=== PATIENT | male | born 1955 | race Caucasian/White ===

== ENCOUNTER 2016-12-16 08:27 | Emergency (ER) | payer BC, MEDICARE ==
[2016-12-16] MEDS ORDERED: Enoxaparin Sodium 100 MG/ML SYRINGE ONE (09:21)
[2016-12-16 09:25] LABS: #Basophils 0.1 thou/uL (0.0-0.2); #Eosinphils 0.1 thou/uL (0.0-0.7); #Lymphocytes 1.5 thou/uL (1.20-3.40); #Monocytes 0.7 thou/uL (0.11-0.59); #Neutrophils 6.4 thou/uL (1.40-6.50); %Basophils 0.7 % (0.0-1.0); %Eosinophils 1.2 % (0.0-10.0); %Lymphocytes 17.5 % (21.0-51.0); %Monocytes 8.4 % (0.0-10.0); %Neutrophils 72.3 % (42.0-75.0); Hemoglobin 16.7 g/dL (14.0-18.0); Mean Corpuscular HGB CONC 32.8 g/dL (32.0-36.0); Mean Corpuscular Hemoglobin 30.3 pg (27.0-31.0); Mean Corpuscular Volume 92.3 fl (80.0-94.0); Mean Platelet Volume 5.5 fL (7.4-10.4); Platelet Count 211 thou/uL (130-400); RBC Distribution Width 13.5 % (11.5-14.5); Red Blood Cell (RBC) Count 5.52 mill/uL (4.70-6.10); White Blood Cell (WBC) Count 8.8 thou/uL (4.8-10.8)
[2016-12-16 09:42] LABS: ALT (SGPT) 35 U/L (8-55); AST (SGOT) 24 U/L (5-34); Alkaline Phosphatase 45 U/L (40-150); Anion Gap 14 mmol/L (10-20); BUN (Urea Nitrogen) 21 mg/dL (8.4-25.7); Bilirubin, Total 0.4 mg/dL (0.2-1.2); Calc. Creatinine Clearance 0 mL/min (70-130); Calcium 9.5 mg/dL (7.8-10.44); Carbon Dioxide 24 mmol/L (23-31); Chloride 105 mmol/L (98-107); Estimated GFR-MDRD 45; Globulin 2.8 g/dL (2.4-3.5); Glucose 119 mg/dL (80-115); Potassium 4.1 mmol/L (3.5-5.1); Protein, Total 6.8 g/dL (5.8-8.1); Sodium 139 mmol/L (136-145)
[2016-12-16 09:44] LABS: CKMB 2.5 ng/mL (0-6.6); Troponin I 0.103 ng/mL (< 0.028)
[2016-12-16] MEDS ORDERED: Nitroglycerin 50 MG/250 ML BOT 250 ML ONE (09:53)
[2016-12-16] MEDS ORDERED: Metoprolol Tartrate 5 MG/5 ML VIAL ONE ×2 (09:53→09:58)
--- NOTE | 2016-12-16 16:25 | RAD ---
PORTABLE CHEST 12/16/16 An AP portable film at 0920 shows a normal sized heart and clear lungs. No infiltrate or effusion wa s seen. There is no vascular congestion or edema. The trachea is midline. IMPRESSION: No acute finding. POS: HOME
== END 2016-12-16 10:10 | disposition short-term general hospital (02) ==
LOC: BURERS 08:27
DX: I24.9 Acute ischemic heart disease, unspecified (principal); E78.5 Hyperlipidemia, unspecified; Z86.73 Personal history of transient ischemic attack (TIA), and cerebral infarction without residual deficits; I11.0 Hypertensive heart disease with heart failure; I50.9 Heart failure, unspecified; Z79.899 Other long term (current) drug therapy; Z79.82 Long term (current) use of aspirin
CPT/HCPCS: 71010; 80053; 82553; 83880; 84484; 85025; 85379; 93005; 94760; 96372; 96374; 96375; J1650

== ENCOUNTER 2017-01-26 08:35 | Emergency (ER) | payer MEDICARE ==
[2017-01-26] MEDS ORDERED: traMADol HCl 50 MG TAB ONE (09:09)
--- NOTE | 2017-01-26 09:14 | RAD ---
PORTABLE CHEST 1 VIEW: Date: 01/26/17 Time: 0833 hours HISTORY: Left-sided chest pain. FINDINGS: Comparison made with exam of 12/16/16. The heart size is normal. The lungs are well expanded without focal areas of consolidation, pneumotho rax, or pleural effusions. IMPRESSION: No radiographic evidence of acute cardiopulmonary process. POS: [facility]
== END 2017-01-26 09:20 | disposition home or self-care (01) ==
LOC: BURERS 08:35
DX: S23.41XA Sprain of ribs, initial encounter (principal); E78.5 Hyperlipidemia, unspecified; I10 Essential (primary) hypertension; Z86.73 Personal history of transient ischemic attack (TIA), and cerebral infarction without residual deficits; Z79.899 Other long term (current) drug therapy; Z79.82 Long term (current) use of aspirin; X50.1XXA Overexertion from prolonged static or awkward postures, initial encounter
CPT/HCPCS: 71010

== ENCOUNTER 2017-11-26 18:08 | Emergency (ER) | payer MEDICARE ==
[2017-11-26 18:40] LABS: #Basophils 0.2 thou/uL (0.0-0.2); #Eosinphils 0.4 thou/uL (0.0-0.7); #Lymphocytes 2.7 thou/uL (1.20-3.40); #Monocytes 0.9 thou/uL (0.11-0.59); #Neutrophils 5.1 thou/uL (1.40-6.50); %Basophils 1.7 % (0.0-1.0); %Eosinophils 3.8 % (0.0-10.0); %Lymphocytes 29.5 % (21.0-51.0); %Monocytes 9.9 % (0.0-10.0); %Neutrophils 55.1 % (42.0-75.0); Hemoglobin 13.9 g/dL (14.0-18.0); Mean Corpuscular HGB CONC 32.3 g/dL (32.0-36.0); Mean Corpuscular Hemoglobin 28.6 pg (27.0-31.0); Mean Corpuscular Volume 88.3 fL (78.0-98.0); Platelet Count 316 thou/uL (130-400); RBC Distribution Width 13.5 % (11.5-14.5); Red Blood Cell (RBC) Count 4.88 mill/uL (4.70-6.10); White Blood Cell (WBC) Count 9.2 thou/uL (4.8-10.8)
[2017-11-26 18:53] LABS: ALT (SGPT) 45 U/L (8-55); AST (SGOT) 37 U/L (5-34); Albumin 4.5 g/dL (3.4-4.8); Alkaline Phosphatase 44 U/L (40-150); Anion Gap 15 mmol/L (10-20); BUN (Urea Nitrogen) 26 mg/dL (8.4-25.7); Bilirubin, Total 0.3 mg/dL (0.2-1.2); Calc. Creatinine Clearance 0 mL/min (70-130); Calcium 10.1 mg/dL (7.8-10.44); Carbon Dioxide 27 mmol/L (23-31); Chloride 98 mmol/L (98-107); Estimated GFR-MDRD 53; Globulin 2.9 g/dL (2.4-3.5); Glucose 139 mg/dL (80-115); Lipase 35 U/L (8-78); Potassium 4.3 mmol/L (3.5-5.1); Protein, Total 7.4 g/dL (5.8-8.1); Sodium 136 mmol/L (136-145)
[2017-11-26 19:00] LABS: Troponin I 1.058 ng/mL (< 0.028)
[2017-11-26] MEDS ORDERED: Metoprolol Tartrate 5 MG/5 ML VIAL ONE (19:04)
[2017-11-26] MEDS ORDERED: traMADol HCl 50 MG TAB ONE (19:26)
--- NOTE | 2017-11-26 20:01 | CT ---
CT AORTIC DISSECTION SCAN WITH CONTRAST: 11/26/2017 TECHNIQUE: A CT angio of the chest was performed, and slices continued down into the abdomen, beyond the bifurca tion of the aorta. Axial slices were acquired initially and then coronal and sagittal reconstruction s were done afterwards. FINDINGS: There is no sign of aortic dissection. Internal defect seen in the mid to lower abdominal aorta has the appearance of thrombus and plaque at the periphery of the aorta, rather than dissection. There i s a very minimal distal abdominal aortic widening, maximal diameter 3 cm. The celiac artery, SMA, an d GUERRERO all fill well with contrast. Both coronary arteries are seen to fill with contrast. Scans int o the proximal iliac arteries show no aneurysms there. Both internal iliac arteries fill. The CT of the chest shows fairly good filling of the proximal pulmonary arteries. No filling defects are seen proximally, to suggest emboli. No lobar infiltrate or effusion is seen. No pulmonary mass es are apparent. There is a little haziness in the bases, which could be atelectasis. The abdominal portion of the CT showed diffuse fatty infiltration of the liver, without any focal hep atic findings. The spleen, pancreas, and adrenal glands are unremarkable. No stones are seen in the gallbladder. There is a 2.2 cm rounded, low density area in the kidney and a 1.2 cm rounded, low density i n the kidney. These are almost certainly cysts, but ultrasound would be needed to confirm th is. There is no hydronephrosis. The visible portions of bowel are unremarkable. No free air or free fluid is seen in the areas scann ed. An incidental finding is a mild anterior compression of the L1 vertebral body, obviously not acu te. IMPRESSION: 1. No evidence of aortic dissection. There is some thrombus/plaque in the distal abdominal aorta. 2. 3.0 cm distal abdominal aortic aneurysm. Minimal in size at this point. 3. Probable renal cysts. Ultrasound needed for confirmation. 4. Diffuse fatty infiltrate of the liver. 5. No evidence of pulmonary embolus. 6. Mild anterior compression of L1, probably old. POS: HOME
== END 2017-11-26 19:20 | disposition left against medical advice (07) ==
LOC: BURERS 18:08
DX: I21.4 Non-ST elevation (NSTEMI) myocardial infarction (principal); I71.4 Abdominal aortic aneurysm, without rupture; I74.09 Other arterial embolism and thrombosis of abdominal aorta; I95.9 Hypotension, unspecified; I10 Essential (primary) hypertension; Z86.73 Personal history of transient ischemic attack (TIA), and cerebral infarction without residual deficits; Z79.891 Long term (current) use of opiate analgesic; Z79.82 Long term (current) use of aspirin; Z79.899 Other long term (current) drug therapy
CPT/HCPCS: 71275; 80053; 83690; 84484; 85025; 85379; 85730; 93005; 94760